=== PATIENT | male | born 1970 | race Asian ===

== ENCOUNTER 2018-06-20 05:56 | Emergency (ER) | payer MEDICAID ==
[~2018-06-20] VITALS: Ht 172.7 cm; Wt 81.0 kg
[2018-06-20 07:55] VITALS: BP 150/80
== END 2018-06-20 07:58 | disposition left against medical advice (07) ==
LOC: ER 05:56
DX: R56.9 Unspecified convulsions (principal)
CPT/HCPCS: 82962; 99283

== ENCOUNTER 2020-12-01 09:47 | Emergency (ER) | payer MEDICAID ==
[~2020-12-01] VITALS: Ht 172.7 cm; Wt 77.0 kg
[2020-12-01] MEDS ORDERED: LEVETIRACETAM 500MG PREMIX 100 ML IV ONE (10:00)
[2020-12-01 10:27] LABS: BASOPHILS % 0.5 % (0.0-2.0); EOSINOPHILS % 0.1 % (0.0-5.0); HEMATOCRIT. 43.7 % (42.0-52.0); HEMOGLOBIN. 14.5 g/dL (14.0-18.0); LYMPHOCYTES % 14.9 % (20.0-50.0); MEAN CORPUSCULAR HEMOGLOBIN 28.9 pg (28.0-32.0); MEAN CORPUSCULAR VOLUME 87.3 fL (80.0-94.0); MEAN PLATELET VOLUME 7.3 fl (7.4-10.4); MONOCYTES % 6.7 % (2.0-8.0); NEUTROPHILS % 77.8 % (40.0-76.0); PLATELET 292 x1000/uL (130-400); RED CELL DISTRIBUTION WIDTH 14.1 % (11.6-14.6)
[2020-12-01 10:33] LABS: CHLORIDE 105 mEq/L (98-107)
[2020-12-01 12:56] VITALS: BP 147/88
== END 2020-12-01 12:58 | disposition home or self-care (01) ==
LOC: ER 09:47
DX: G40.909 Epilepsy, unspecified, not intractable, without status epilepticus (principal); F12.10 Cannabis abuse, uncomplicated
CPT/HCPCS: 36415; 80053; 82962; 85025; 93005; 96365; 99284; J1953

== ENCOUNTER 2021-06-10 02:48 | Emergency (ER) | payer OTHER ==
[~2021-06-10] VITALS: Ht 177.8 cm; Wt 84.0 kg
[2021-06-10 03:07] VITALS: BP 134/76
== END 2021-06-10 03:46 | disposition home or self-care (01) ==
LOC: ER 02:48
DX: G40.909 Epilepsy, unspecified, not intractable, without status epilepticus (principal)
CPT/HCPCS: 99283